=== PATIENT | female | born 1950 | race African-American/Black ===

== ENCOUNTER → 2016-10-13 | Outpatient (CLI) | payer MEDICARE, OTHER ==
[2016-07-09 15:14] VITALS: BP 120/70
[~2016-10-13] MED LIST: ASPI-482 PO; ASPI81TA50 PO; ATOR40TA59 PO; BUSP15TA PO; CALC1TAB75 PO; CYCL10TA2 PO; DIPH25CA58 PO; GABA-585 PO; GABA600T2 PO; GLIP10TA13 PO; GLIP5TAB10 PO; HYDR-2762 PO; HYOS0.125 PO; LIRA0.6P2 SQ; LISI10TA2 PO; MELO-150 PO; METF500T4 PO; METH-38 PO; METO25TA2 PO; METO25TA9 PO; OXYC-323 PO; Oxycodone Hcl/Acetaminophen PO; PANT40TA5 PO; PROVENTIL HFA6.7 GM IH; SERT100T PO; VALS160T3 PO; WARF5TAB PO; WARF6TAB PO
--- NOTE | 2016-10-13 14:58 | RAD ---
KUB, 10/13/2016: History: Abdominal pain, kidney stones Comparison is made to a study from 01/22/2016. The left ureteral stent has been removed. The abdominal gas pattern is unremarkable. There are multiple pelvic calcifications probably representing phleboliths. Right-sided paraspinous calcifications in the lower lumbar region are likely phleboliths. A ureteral calculus cannot be entirely excluded. There is no evidence of organomegaly. IMPRESSION: 1. Pelvic and lower abdominal calcifications are probably vascular. 2. No acute abdominal abnormality is detected.
== END | disposition home or self-care (01) ==
LOC: RAD 13:35
PROVIDERS: ATTEND Urology
DX: N20.1 Calculus of ureter (principal)
CPT/HCPCS: 74000

== ENCOUNTER → 2016-10-29 | Outpatient (CLI) | payer MEDICARE, OTHER ==
[2016-07-09 15:14] VITALS: BP 120/70
[~2016-10-29] MED LIST changes: +ESCI10TA PO; +GABA-586 PO; +IOHEXOL 180 MG/ML 10 ML VIAL. ONE; +methylPREDNISolone ACETATE 40 MG/ML VIAL. ONE; +methylPREDNISolone ACETATE 80 MG/ML VIAL. ONE
--- NOTE | 2016-10-30 09:33 | CONS ---
DATE OF CONSULTATION: 10/29/2016 INITIAL CONSULTATION FOR PAIN CLINIC CHIEF COMPLAINT: Neck and bilateral upper extremity pain, left greater than right. HISTORY OF PRESENT ILLNESS: The patient is a 65-year-old female, who presents with history of pain back is the neck, shoulders, upper extremities radiating to both arms, worse on the left side than the right, but present bilaterally for about 2 years. The patient reports been worse over the past 6 months or so. No specific injury action that she is aware of increasing gradually over time as constant pain, throbbing, intermittent in intensity, but always present, burning, shooting pains into the arms, weakness in the arms as well as then dropping some items ____ with left hand. She is right handed, however, per sharp pain in the neck as well as cause some headaches. She noted to have a decompressive lumbar laminectomy posteriorly in 2014, which helped, but only by a very minimal amount. The patient reports she has had physical therapy, still doing some stretching exercises with her neck and shoulders at home, and had epidural injections in 2012 in an outside facility. The patient also taking Tylenol muscle relaxant, gabapentin, hydrocodone, which helps, but only about 20%-25% improvement. The patient reports no loss of motor function completely, but significant fatigability pursue of the left arm with repetitive motions, even getting dressed using her arms to reach above her head is becoming more and more difficult. The patient reports her disability rating from 0 to 10, 10 being the worst, is a 8 with family and home responsibilities, recreation, social activity, 6 with sexual behavior and 2 with self-care and 7 with life support activities. The patient reports it awakens her from sleep at least once in night, does not affect her bowel or bladder control, but does affect her ability to walk. She has been using a cane in her right hand and she feels unstable, so she went on neck and head is hurting the most. PAST MEDICAL HISTORY: Significant for diabetes type 2, sinus problems, diverticulitis, congestion from allergies, sinus congestion, regular heartbeat, hypertension, gastroesophageal reflux, dizziness and left knee arthritis. PREVIOUS SURGERY: Include hysterectomy, left total knee replacement, right shoulder rotator cuff repair and cervical laminectomy posteriorly in 2014. CURRENT MEDICATIONS: Include omeprazole, metoprolol, atorvastatin, gabapentin, citalopram, baby daily aspirin, hydrocodone, cyclobenzaprine and Diovan, also metformin. ALLERGIES: THE PATIENT IS ALLERGIC TO SULFA. FAMILY HISTORY: Significant for heart disease, high blood pressure and diabetes. SOCIAL HISTORY: The patient does not smoke, does not drink alcohol. Lives with her spouse at home, is retired and lives locally in [place], [place]. REVIEW OF SYSTEMS: The patient's review of systems is positive for those items mentioned in history of present illness. All systems are reviewed and otherwise negative. It is complete, full and well documented on the patient's chart. PHYSICAL EXAMINATION: VITAL SIGNS: The patient's blood pressure is 118/72, pulse is 90, respirations 18, temperature 98.2 degrees Fahrenheit, height is 5 feet 2 inches, weight is 195 pounds. GENERAL: The patient is awake, alert, oriented, appropriate, very pleasant demeanor. HEENT: Head shows normocephalic, atraumatic. Extraocular movements are intact and symmetrical. Oral cavity shows mucous membranes are moist and pink. Dentition is intact. NECK: Shows anterior throat supple without palpable lymphadenopathy noted. Swallow reflex is symmetrical. CHEST: Shows normal on inspection. Breath sounds clear to auscultation bilaterally. HEART: Shows S1 and S2. Clear. No murmurs are auscultated. ABDOMEN: Obese, soft, nontender, nondistended. No palpable organomegaly is noted. No rebound or guarding demonstrated. BACK: Shows spine grossly midline, slight flattening of the cervical lordotic curvature. The patient has a well-healed surgical scar in the cervical distribution posteriorly. Normal appearing thoracic kyphosis and lumbar lordotic curvatures. Neck shows some moderate tenderness with palpation in the middle and lower distribution of paraspinous muscles bilaterally, but appears roughly symmetrical on inspection and also superior medial trapezius shows some moderate tenderness, more on the right than the left with palpation, but is symmetrical in appearance. No trigger points or radiation of pain demonstrated. The patient shows good rotation and motion of the cervical spine and slightly guarded, especially to the right past 45 degrees, but performances fully as to the left with 45 degrees rotation without difficulty in past as well as full extension and full forward flexion done again with some guarding with extension and some pain reported in the base of the neck, more on the right than the left with extension, but not with forward flexion is actually relieves the pain. Upper extremities showed deep tendon reflexes at 1+ in the biceps and triceps tendons. Motor exam is approximately 4 on a scale of 5 airplane captain strength, but equal and symmetrical biceps and triceps flexion likewise 4 on a scale of 5, but symmetrical. Peripheral pulses 2+ radial distribution. No peripheral edema is noted. No clubbing, no cyanosis. Upper extremities warm and dry to touch, equal in color and appearance. Shoulder shrug is strong and intact again with some pain reported bilaterally, but worse on the right side, but without loss of strength and resistance as is true with abduction of the shoulder is 90 degrees with pain reported in the right compared to the left, but without loss of strength on resistance. IMPRESSION: 1. This is a 65-year-old female with approximately 2-year history of increasing pain in the base of the neck and upper extremities also causing headaches with the radicular qualities in to the arms. 2. MRI scan of cervical spine showing multilevel degenerative changes and resulting in foraminal central canal narrowing at the C5-C6 and C6-C7, most significantly. Also, C4-C5 and C5-C6 with a right paracentral disk protrusion at C4-C5 and left posterior lateral prominent disk bulge at C5-C6. 3. Type 2 diabetes. 4. Hypertension. 5. Arthritis. PLAN: Options were discussed with the patient and her accompanies her to visit today including conservative medical management, continued physical therapies, interventional techniques. She would like to pursue interventional techniques. We discussed a cervical epidural steroid injection using description as well as anatomical models to describe the procedure. The patient would like to proceed with this. Risks were then discussed including, but not limited to bleeding, infection, possibility of epidural hematoma, subsequent neurologic compromise, dural puncture, headaches, spinal cord and/or nerve damage, side effects of steroid medication and poor results regarding pain control. The patient understands and wishes to proceed. The patient will return to clinic in approximately 2 weeks for followup, was counseled on return appointment, activity level and side effects to be aware of. DIAGNOSES: Cervical radiculopathy with cervical degenerative disk disease and post-cervical laminectomy syndrome. PROCEDURE: Cervical epidural steroid injection using a C-arm fluoroscopic guidance under sterile prep and drape, a translaminar approach at the C6-C7 level with local anesthetic. Medications injected is 120 mg of Depo-Medrol plus 5 mL of preservative-free normal saline and 2 mL of Isovue for contrast. The patient's condition at discharge is stable. The patient tolerated the procedure well, had no complications. RAMESH GIMENEZ MD DR: ANTONIO/regina JOB#: [id number] / [id number]
== END | disposition home or self-care (01) ==
LOC: PNCL 07:45
PROVIDERS: ATTEND Anesthesiology
DX: M50.123 Cervical disc disorder at C6-C7 level with radiculopathy (principal); M96.1 Postlaminectomy syndrome, not elsewhere classified; E11.9 Type 2 diabetes mellitus without complications; I10 Essential (primary) hypertension; M19.90 Unspecified osteoarthritis, unspecified site; Z83.3 Family history of diabetes mellitus; J45.909 Unspecified asthma, uncomplicated; E66.9 Obesity, unspecified; Z96.652 Presence of left artificial knee joint; Z90.710 Acquired absence of both cervix and uterus; Z98.51 Tubal ligation status; Z98.42 Cataract extraction status, left eye; Z98.41 Cataract extraction status, right eye
CPT/HCPCS: 62321; J1030; J1040

== ENCOUNTER → 2017-03-13 | Outpatient (CLI) | payer MEDICARE, OTHER ==
[2016-07-09 15:14] VITALS: BP 120/70
[~2017-03-13] MED LIST changes: -ESCI10TA PO; +ESCITALOPRAM OX10 MG PO; -IOHEXOL 180 MG/ML 10 ML VIAL. ONE; -MELO-150 PO; +MELO15TA23 PO; +WARF-78 PO; -WARF5TAB PO; -WARF6TAB PO; +WARF6TAB49 PO; -methylPREDNISolone ACETATE 40 MG/ML VIAL. ONE; -methylPREDNISolone ACETATE 80 MG/ML VIAL. ONE
--- NOTE | 2017-03-13 13:24 | RAD ---
Indication: Left knee pain for 8 months. The patient is status post knee replacement surgery in 2013. The patient was administered 25 mCi technetium 99m MDP intravenously and dynamic blood flow, blood pool and delayed imaging over bilateral knees was performed. Blood flow images demonstrate symmetric perfusion of bilateral knees. Blood pool image does show some photopenia over the left knee consistent with known prosthesis from arthroplasty. There appears to be fairly symmetric uptake of activity bilaterally on the delayed images. Again, photopenia seen at the left knee is consistent with a prosthesis. There is normal reactive changes adjacent to the prosthesis of the left knee. No intense region of tracer accumulation is identified to suggest an active reparative bony process or occult fracture. Impression: Unremarkable three-phase bone scan of bilateral knees.
== END | disposition home or self-care (01) ==
LOC: NM 07:54
PROVIDERS: ATTEND Orthopaedic Surgery
DX: M25.562 Pain in left knee (principal); Z96.652 Presence of left artificial knee joint
CPT/HCPCS: 78315; 96374; A9503

== ENCOUNTER → 2017-06-25 | Outpatient (CLI) | payer MEDICARE, OTHER ==
[2016-07-09 15:14] VITALS: BP 120/70
[~2017-06-25] MED LIST changes: +HYOS0.1222 PO; -HYOS0.125 PO; +METO-239 PO; -METO25TA9 PO
--- NOTE | 2017-06-25 10:41 | KCIC ---
MRI right knee without contrast dated 06/25/2017 10:15 AM Indication: Knee pain , recent fall generalized pain. Comparison: No comparison is available. Technique: Routine multiplanar multisequence imaging performed. . Findings: Mild to moderate tricompartmental hypertrophic change with small marginal osteophytes. Thinning and surface irregularity of the articular cartilage throughout. Full-thickness cartilage fissuring over the weightbearing surface of the medial femoral condyle with full-thickness cartilage loss at the medial tibial plateau. There is also full-thickness cartilage loss of the lateral patellar facet, patellar apex and lateral femoral trochlea with patchy subchondral edema. Small joint effusion. Small popliteal cyst measures 4.6 cm craniocaudal. Small loose body at the posterior joint space. Anterior cruciate and posterior cruciate ligaments are intact. Medial and lateral collateral complexes are intact. Iliotibial band, popliteus tendon and pes anserine complex within normal limits. Quadriceps and patellar tendon are intact. No abnormality of the medial or lateral retinaculum. Horizontal oblique tear posterior horn/body of medial meniscus with linear defect extending to the tibial articular surface. There is also blunting of the free edge of the posterior horn and body. The anterior horn is intact. Lateral meniscus is normal in morphology and signal. IMPRESSION: 1. Complex tear posterior horn/body of medial meniscus. 2. Moderate tricompartmental degenerative arthrosis and chondromalacia. There is full-thickness cartilage loss at the anterior compartment with near full-thickness involvement of the medial compartment. 3. Small joint effusion and small popliteal cyst. Small intra-articular loose body. Electronically signed by: Darvin Edwards MD (06/25/2017 10:37 AM) [id number]
== END | disposition home or self-care (01) ==
LOC: KCIC MRI 09:51
PROVIDERS: ATTEND Orthopaedic Surgery
DX: S83.241A Other tear of medial meniscus, current injury, right knee, initial encounter (principal); M71.21 Synovial cyst of popliteal space [Baker], right knee; M94.261 Chondromalacia, right knee; X58.XXXA Exposure to other specified factors, initial encounter; Y93.89 Activity, other specified; Y92.89 Other specified places as the place of occurrence of the external cause; Y99.8 Other external cause status
CPT/HCPCS: 73721

== ENCOUNTER → 2018-10-07 | Outpatient (CLI) | payer MEDICARE, OTHER ==
[2016-07-09 15:14] VITALS: BP 120/70
[~2018-10-07] MED LIST changes: +ALBU2.5V8 IH; -GABA-586 PO; +GABA300C18 PO; -GABA600T2 PO; +GABA600T7 PO; -HYDR-2762 PO; +HYDR-2765 PO; +METF500T16 PO; -METF500T4 PO; -OXYC-323 PO; +OXYC1TAB15 PO; -PANT40TA5 PO; +PANT40TA77 PO; -PROVENTIL HFA6.7 GM IH; +ZOLPIDEM 5 MG TABLET. PO ONE
--- NOTE | 2018-10-12 09:55 | SLEEP ---
DATE OF STUDY: 10/07/2018 SLEEP STUDY ATTENDING PHYSICIAN: Sera Silveira M.D. The patient is 67 years old who weighs 180 pounds with a BMI of 33. The patient's [place] score was 9. The patient had a history of sleep apnea in 2005 and has been on 9 cm of CPAP, but machine broke. As a result, another study was requested. During the night study, the patient spent 427 minutes in bed and slept for 363 minutes with a sleep efficiency of 85%. Sleep latency was 53 minutes with absent REM sleep. Overall, sleep architecture showed normal stage 1 sleep, increased stage 2 sleep, increased slow wave sleep and absent REM sleep. During the night study, the patient had 3 obstructive apneas, 2 mixed apneas, no central apneas and 37 hypopneas. The patient's apnea-hypopnea index was 7 per hour, supine index 8 per hour. REM sleep was not observed. EKG monitoring revealed an average heart rate of 87 beats per minute. No sustained arrhythmias observed. Maximum heart rate 91 beats per minute. Nocturnal oximetry study revealed an average oxygen saturation of 92%, the lowest of 85%. 20% of time, oxygen saturation remained between 80% and 89%. PLMS were seen at index of 22 per hour and 2 per hour caused EEG arousals. Due to low AHI, the patient did not meet the split-night criteria for CPAP initiation. IMPRESSION: 1. Mild sleep apnea-hypopnea syndrome at an apnea-hypopnea index of 7 per hour. Absence of REM sleep can underestimate the severity of sleep apnea. 2. Nocturnal hypoxia secondary to obstructive sleep apnea. 3. [id number] periodic limb movements of sleep. RECOMMENDATIONS: 1. The patient did not meet the split-night criteria for CPAP initiation due to low AHI. 2. The patient has mild sleep apnea. I would recommend treating the patient's sleep apnea initially with weight loss. 3. If the patient continues to remains symptomatic despite weight loss, then consider other treatment options such as oral appliance or a trial of CPAP titration. 4. Avoid MICROBIOLOGY QUALITY CONTROL TECHNICIAN depressants. 5. Caution regarding driving until symptoms of sleep apnea resolve with the above recommendations. 6. The patient should also be further evaluated for symptoms of restless legs during the day. KEARA U. CAMPBELL, MD DR: STEVE/regina JOB#: [id number] / [id number] SERA Jackson MD
== END | disposition home or self-care (01) ==
LOC: SLPLAB 19:07
PROVIDERS: ATTEND Family Medicine
DX: G47.33 Obstructive sleep apnea (adult) (pediatric) (principal); G47.34 Idiopathic sleep related nonobstructive alveolar hypoventilation; G47.61 Periodic limb movement disorder; E66.9 Obesity, unspecified; Z68.33 Body mass index [BMI] 33.0-33.9, adult
CPT/HCPCS: 95810

== ENCOUNTER → 2021-09-10 | Outpatient (CLI) | payer MEDICARE, OTHER ==
[2016-07-09 15:14] VITALS: BP 120/70
[~2021-09-10] MED LIST changes: +ACET325T9 PO; -ALBU2.5V8 IH; +AMLO-187 PO; +CALC-627 PO; -CALC1TAB75 PO; +CYCL10TA19 PO; -CYCL10TA2 PO; +DAPA10TA PO; +EZET10TA20 PO; +LEXAPRO10 MG PO; +LISI10TA16 PO; -LISI10TA2 PO; +MELA3TAB43 PO; +MULT-496 PO; +NPH,100V SQ; +OMEG100021 PO; +PROVENTIL HFA6.7 GM IH; -WARF-78 PO; +WARF5TAB2 PO; -ZOLPIDEM 5 MG TABLET. PO ONE
--- NOTE | 2021-09-10 13:53 | EKG ---
[facility] [address] [place] [address] Test Date: 2021-09-10 Test Time: 13:48:24 Pat Name: KARIN PAUL Department: Room: Gender: F Facilities Locator: : 1950 Requested By: JONNATHAN CHRISTIANSEN Order Number: [id number] Reading MD: Juan J Johnson MD Measurements Intervals [place] Rate: 76 P: 22 IA: 156 QRS: 78 QRSD: 72 T: 83 QT: 388 QTc: 436 Interpretive Statements SINUS RHYTHM VENTRICULAR PREMATURE COMPLEX(ES) Electronically Signed On 09-12-2021 9:39:26 INTERNET MARKETING DIRECTOR by Juan J Johnson MD
[2021-09-10 13:55] LABS: BASO # 0.1 x10^3/uL (0.0-0.2); BASO % 1 % (0-3); EOS # 0.2 x10^3/uL (0.0-0.7); EOS % 3 % (0-3); HEMATOCRIT 38.7 % (36.0-47.0); LYMPH # 1.9 x10^3/uL (1.0-4.8); LYMPH % 28 % (24-48); MEAN CORPUSCULAR HEMOGLOBIN 35 pg (25-35); MEAN CORPUSCULAR HGB CONC 34 g/dL (31-37); MEAN CORPUSCULAR VOLUME 103 fL (79-100); MONO # 0.5 x10^3/uL (0.0-1.1); MONO % 8 % (0-9); NEUT % 60 % (31-73); PLATELET COUNT 293 x10^3/uL (140-400); RED BLOOD COUNT 3.75 x10^6/uL (3.50-5.40); WHITE BLOOD COUNT 6.7 x10^3/uL (4.0-11.0)
[2021-09-10 14:25] LABS: ALBUMIN 3.7 g/dL (3.4-5.0); ALBUMIN/GLOBULIN RATIO 1.2 (1.0-1.7); CALCIUM 8.9 mg/dL (8.5-10.1); CREATININE 0.8 mg/dL (0.6-1.0); GFR 85.8; POTASSIUM 4.4 mmol/L (3.5-5.1); TOTAL BILIRUBIN 0.4 mg/dL (0.2-1.0); TOTAL PROTEIN 6.8 g/dL (6.4-8.2)
== END ==
LOC: SURGPAT 12:53
PROVIDERS: ATTEND Neurological Surgery
DX: Z01.818 Encounter for other preprocedural examination (principal); B35.1 Tinea unguium
CPT/HCPCS: 36415; 80053; 85025; 87641; 93005

== ENCOUNTER → 2021-09-10 | Outpatient (CLI) | payer MEDICARE, OTHER ==
[2016-07-09 15:14] VITALS: BP 120/70
[~2021-09-10] MED LIST changes: +DOCU-109 PO; +HYDR-2761 PO; +TIZA4CAP PO
[2021-09-10 14:27] LABS: ALBUMIN 3.6 g/dL (3.4-5.0); DIRECT BILIRUBIN 0.1 mg/dL (0.0-0.2); TOTAL BILIRUBIN 0.4 mg/dL (0.2-1.0); TOTAL PROTEIN 7.3 g/dL (6.4-8.2)
== END ==
LOC: LAB 12:55
PROVIDERS: ATTEND Podiatrist Foot & Ankle Surgery
DX: B35.1 Tinea unguium (principal)
CPT/HCPCS: 36415; 80076

== ENCOUNTER → 2021-12-24 | Outpatient (CLI) | payer MEDICARE, OTHER ==
[2021-09-17 11:02] VITALS: BP 112/56
--- NOTE | 2021-12-24 15:30 | RAD ---
XR CERVICAL SPINE 2-3V History: Status post cervical fusion. Neck pain. Comparison: None. Technique: 4 views of the cervical spine. Findings: There are 7 non-rib bearing cervical vertebral segments. Postsurgical changes from C5-C7 ACDF with intervertebral disc spacers. No evidence of hardware compli cation. There is no evidence of fracture. No destructive osseous lesions are seen. Minimal retrolisthesis of C4 on C5. Mild degenerative facet changes. Mild adjacent segment disc space narrowing at C4-C5. Soft tissues are unremarkable. IMPRESSION: 1. Postsurgical features from C5-C7 ACDF with mild retrolisthesis and disc space narrowing at C4-C5. Electronically signed by: Junior Youssef MD (12/24/2021 3:27 PM) [id number]
== END ==
LOC: RAD 10:14
PROVIDERS: ATTEND Neurological Surgery
DX: M43.12 Spondylolisthesis, cervical region (principal); M48.02 Spinal stenosis, cervical region; Z98.1 Arthrodesis status
CPT/HCPCS: 72040